=== PATIENT | male | born 1970 | race Two or more races ===

== ENCOUNTER 2021-12-20 11:56 | Inpatient (IN) | payer MEDICAID, OTHER ==
[~2021-12-20] VITALS: Ht 180.3 cm; Wt 80.9 kg
[2021-12-20 13:31] LABS: Urine Bacteria FEW /hpf (None Seen); Urine Blood TRACE /uL (Negative); Urine Specific Gravity 1.024 (1.001-1.035); Urine WBC 16 /hpf (0 - 3)
[2021-12-20 15:31] LABS: Sodium 132 mmol/L (136-145)
[2021-12-20 15:32] LABS: Alanine Aminotransferase 39 U/L (16-61); Alkaline Phosphatase 67 U/L (45-117); Anion Gap 15 (5-15); Aspartate Aminotransferase 25 U/L (15-37); BUN/Creatinine Ratio 10.4; Bilirubin, Total 0.4 mg/dL (0.2-1.0); Blood Urea Nitrogen 13 mg/dL (7-18); Calcium 8.9 mg/dL (8.5-10.1); Carbon Dioxide 18 mmol/L (21-32); Chloride 99 mmol/L (98-107); GFR African American 78 mL/min; GFR Non-African American 64 mL/min; Glucose 356 mg/dL (74-106); Potassium 4.7 mmol/L (3.5-5.1)
[2021-12-20 15:33] LABS: Albumin 3.2 g/dL (3.4-5.0); Total Protein 7.9 g/dL (6.4-8.2)
[2021-12-20 15:44] LABS: Basophils # (auto) 0 10 ^3/uL (0-0.2); Eosinophils # (auto) 0 10 ^3/uL (0-0.8); Lymphocytes # (auto) 0.5 10 ^3/uL (0.4-5.4); Lymphocytes % (auto) 10.9 % (10.0-50.0); Monocytes # (auto) 0.8 10 ^3/uL (0-1.3); Neutrophils # (auto) 3.3 10 ^3/uL (1.6-8.6); Nucleated Red Blood Cells % 0.1 %; White Blood Cell 4.6 10^3/uL (4.4-10.8)
[2021-12-20 15:51] LABS: Basophils % (auto) 0.4 % (0.0-2.0); Eosinophils % (auto) 0.1 % (0.0-7.0); Hematocrit 40.5 % (41.0-53.0); Hemoglobin 13.4 g/dL (13.5-17.5); Mean Corpuscular Hemoglobin 30.5 pg (28.0-32.0); Mean Corpuscular Hgb Conc. 33.1 g/dL (32.0-36.0); Mean Corpuscular Volume 92.1 fL (80.0-100.0); Neutrophils % (auto) 71.6 % (37.0-80.0)
[2021-12-20] MEDS ORDERED: DEXTROSE (50%) 50ML SYRG IV PRN (21:45)
[2021-12-20] MEDS ORDERED: ONDANSETRON HCL 4 MG/2 ML VIAL IV PRN (21:45)
[2021-12-20] MEDS ORDERED: PANTOPRAZOLE 40 MG/10 ML VIAL INJ IV ONE (21:45)
[2021-12-20] MEDS ORDERED: ACETAMINOPHEN 325 MG TAB PO PRN (21:45)
[2021-12-20] MEDS: InsuLIN REG 1unit/0.01ml Soln (100units/ml) SC SCH (22:15)
[2021-12-20] MEDS: ACCU-CHEK COMFORT CURVE STRIP VI SCH (22:15)
[2021-12-20] MEDS: SODIUM CHLORIDE 0.9% 1,000 ML IV SCH (22:15)
[2021-12-20] MEDS: ACETAMINOPHEN 325 MG TAB PO PRN (22:16)
[2021-12-20] MEDS ORDERED: cefTRIAXone 1GM/50ML D5W 50 ML IV ONE (22:45)
[2021-12-21] VITALS (7 sets, daily range): BP systolic 89–119; BP diastolic 45–74
[2021-12-21 00:01] LABS: Lactic Acid w/Reflex 2.4 mmol/L (0.4-2.0)
[2021-12-21] MEDS ORDERED: SIMV10TA84 PO (03:51)
[2021-12-21] MEDS ORDERED: LISI2.5T47 PO (03:51)
[2021-12-21] MEDS ORDERED: METF-370 PO (03:51)
[2021-12-21 06:01] LABS: Basophils # (auto) 0 10 ^3/uL (0-0.2); Basophils % (auto) 0.3 % (0.0-2.0); Eosinophils # (auto) 0 10 ^3/uL (0-0.8); Eosinophils % (auto) 0.1 % (0.0-7.0); Hematocrit 30.6 % (41.0-53.0); Hemoglobin 10.5 g/dL (13.5-17.5); Lymphocytes # (auto) 0.6 10 ^3/uL (0.4-5.4); Lymphocytes % (auto) 9.5 % (10.0-50.0); Mean Corpuscular Hgb Conc. 34.2 g/dL (32.0-36.0); Mean Corpuscular Volume 90.8 fL (80.0-100.0); Monocytes # (auto) 0.8 10 ^3/uL (0-1.3); Monocytes % (auto) 13.8 % (0.0-12.0); Neutrophils # (auto) 4.5 10 ^3/uL (1.6-8.6); Neutrophils % (auto) 76.3 % (37.0-80.0); Nucleated Red Blood Cells % 0.1 %; Red Blood Cells 3.37 10^6/uL (4.5-5.90); White Blood Cell 5.9 10^3/uL (4.4-10.8)
[2021-12-21] MEDS: SODIUM CHLORIDE 0.9% 1,000 ML IV SCH ×3 (06:05→23:35)
[2021-12-21 06:24] LABS: Albumin 2.7 g/dL (3.4-5.0); BUN/Creatinine Ratio 15.4; Bilirubin, Total 0.9 mg/dL (0.2-1.0); Calcium 7.6 mg/dL (8.5-10.1); Total Protein 5.7 g/dL (6.4-8.2)
[2021-12-21] MEDS: InsuLIN REG 1unit/0.01ml Soln (100units/ml) SC SCH ×4 (06:31→22:35)
[2021-12-21] MEDS: ACCU-CHEK COMFORT CURVE STRIP VI SCH ×4 (06:31→22:00)
[2021-12-21] MEDS: PANTOPRAZOLE 40 MG/10 ML VIAL INJ IV SCH (09:58)
[2021-12-21] MEDS: ENOXAPARIN SOD 40 MG/0.4 ML SYRINGE SC SCH (09:58)
[2021-12-21] MEDS ORDERED: SODIUM CHLORIDE 0.9% 500 ML IV ONE (12:45)
[2021-12-21] MEDS: ACETAMINOPHEN 325 MG TAB PO PRN (16:58)
[2021-12-21] MEDS: cefTRIAXone 1GM/50ML D5W 50 ML IV SCH (21:58)
[2021-12-22] MEDS: ACETAMINOPHEN 325 MG TAB PO PRN (04:32)
[2021-12-22 05:00] VITALS: BP 105/62
[2021-12-22] MEDS: InsuLIN REG 1unit/0.01ml Soln (100units/ml) SC SCH ×4 (06:50→22:10)
[2021-12-22] MEDS: ACCU-CHEK COMFORT CURVE STRIP VI SCH ×4 (06:51→22:10)
[2021-12-22 09:00] VITALS: BP 100/68
[2021-12-22] MEDS: SODIUM CHLORIDE 0.9% 1,000 ML IV SCH ×2 (10:07→15:49)
[2021-12-22] MEDS: PANTOPRAZOLE 40 MG/10 ML VIAL INJ IV SCH (11:20)
[2021-12-22] MEDS: ENOXAPARIN SOD 40 MG/0.4 ML SYRINGE SC SCH (11:20)
[2021-12-22 13:00] VITALS: BP 112/65
[2021-12-22] MEDS ORDERED: IOHEXOL 300 MG/ML 100ML BOTTLE IJ ONE (14:41)
[2021-12-22 17:00] VITALS: BP 110/70
[2021-12-22 18:55] LABS: INR 0.97 (0.9-1.15); Partial Thromboplastin Time 30.9 sec (24.6-33.4)
[2021-12-22 22:00] VITALS: BP 101/63
[2021-12-22] MEDS: cefTRIAXone 1GM/50ML D5W 50 ML IV SCH (22:07)
[2021-12-22 23:19] LABS: Basophils # (auto) 0.1 10 ^3/uL (0-0.2); Basophils % (auto) 1.4 % (0.0-2.0); Eosinophils # (auto) 0.2 10 ^3/uL (0-0.8); Eosinophils % (auto) 2.7 % (0.0-7.0); Hematocrit 28.7 % (41.0-53.0); Hemoglobin 9.8 g/dL (13.5-17.5); Lymphocytes # (auto) 0.9 10 ^3/uL (0.4-5.4); Lymphocytes % (auto) 16.3 % (10.0-50.0); Mean Corpuscular Hemoglobin 31.1 pg (28.0-32.0); Mean Corpuscular Volume 91.5 fL (80.0-100.0); Monocytes # (auto) 0.7 10 ^3/uL (0-1.3); Monocytes % (auto) 12.3 % (0.0-12.0); Neutrophils # (auto) 3.9 10 ^3/uL (1.6-8.6); Neutrophils % (auto) 67.3 % (37.0-80.0); Nucleated Red Blood Cells % 0.1 %; Red Blood Cells 3.14 10^6/uL (4.5-5.90); Red Cell Distribution Width 15.8 % (11.8-14.3); White Blood Cell 5.8 10^3/uL (4.4-10.8)
[2021-12-22] MEDS: DOCUSATE SOD 100 MG CAP PO SCH (23:27)
[2021-12-23] MEDS: SODIUM CHLORIDE 0.9% 1,000 ML IV SCH ×3 (00:03→16:25)
[2021-12-23 05:00] VITALS: BP 102/68
[2021-12-23] MEDS: InsuLIN REG 1unit/0.01ml Soln (100units/ml) SC SCH ×3 (06:37→16:25)
[2021-12-23] MEDS: ACCU-CHEK COMFORT CURVE STRIP VI SCH ×3 (06:40→16:25)
[2021-12-23 08:45] VITALS: BP 122/63
[2021-12-23] MEDS: DOCUSATE SOD 100 MG CAP PO SCH (10:38)
[2021-12-23] MEDS: PANTOPRAZOLE 40 MG/10 ML VIAL INJ IV SCH (10:38)
[2021-12-23 12:38] VITALS: BP 97/63
[2021-12-23 16:52] VITALS: BP 152/67
== END 2021-12-23 18:00 | disposition home or self-care (01) | DRG 207 ==
LOC: ER 11:56 → OVERFLOW 21:43 → EAST 12-21 00:44
PROVIDERS: ADMIT Nurse Practitioner Family; ATTEND Internal Medicine
DX: I95.9 Hypotension, unspecified (principal); E87.20 Acidosis, unspecified; E44.0 Moderate protein-calorie malnutrition; Z90.6 Acquired absence of other parts of urinary tract; E86.0 Dehydration; E78.5 Hyperlipidemia, unspecified; N39.0 Urinary tract infection, site not specified; F17.200 Nicotine dependence, unspecified, uncomplicated; Z20.822 Contact with and (suspected) exposure to COVID-19; E11.9 Type 2 diabetes mellitus without complications; E86.1 Hypovolemia; I10 Essential (primary) hypertension; Z85.51 Personal history of malignant neoplasm of bladder; Z92.21 Personal history of antineoplastic chemotherapy; Z82.49 Family history of ischemic heart disease and other diseases of the circulatory system; Z83.3 Family history of diabetes mellitus; Z68.24 Body mass index [BMI] 24.0-24.9, adult
CPT/HCPCS: 36415; 70450; 71260; 74176; 74177; 80053; 81001; 82962; 83036; 83605; 84484; 85025; 85610; 85652; 85730; 86141; 87040; 87804; 93005; 96365; 96375; C9113; G0378; J0696; J1815